=== PATIENT | female | born 1980 | race Caucasian/White ===

== ENCOUNTER → 2020-09-28 | Outpatient (CLI) | payer SELFPAY | LOC: RAD 09:15 | DX: Z30.431 Encounter for routine checking of intrauterine contraceptive device (principal) ==

== ENCOUNTER → 2021-05-24 | Outpatient (CLI) | payer SELFPAY ==
[2021-05-27 06:41] LABS: ASPERGILLUS FUMIGATUS AL COUNT <0.10 kU/L (()); BOX ELDER-MAPLE ALLERGEN COUNT <0.10 kU/L (())
[2021-05-27 06:42] LABS: ALTERNARIA TENUIS CNT <0.10 kU/L (()); BERMUDA GRASS ALLERGEN COUNT 0.23 kU/L (()); CAT DANDER ALLERGEN COUNT 0.18 kU/L (()); CLADOSPORIUM ALLERGEN COUNT <0.10 kU/L (()); COCKROACH ALLERGEN COUNT 0.11 kU/L (()); COTTONWOOD TREE ALLERGEN COUNT <0.10 kU/L (()); DOG DANDER ALLERGEN COUNT 0.47 kU/L (()); DUST MITES (D.F.) ALLERG COUNT 0.22 kU/L (()); DUST MITES (D.P.) ALLERG COUNT 0.21 kU/L (()); ELM TREE ALLERGEN COUNT <0.10 kU/L (()); FIREBUSH ALLERGEN COUNT <0.10 kU/L (()); OAK ALLERGEN COUNT <0.10 kU/L (()); ROUGH MARSH ELDER ALLERG COUNT 0.26 kU/L (()); RUSSIAN THISTLE ALLERGEN COUNT <0.10 kU/L (()); SHORT RAGWEED ALLERGEN COUNT 1.06 kU/L (())
== END ==
LOC: LAB 17:05
PROVIDERS: Family Medicine
DX: R21 Rash and other nonspecific skin eruption (principal)

== ENCOUNTER → 2023-02-07 | Outpatient (CLI) | payer SELFPAY ==
[2023-02-07 12:12] LABS: BASO # 0.04 K/mm3 (0.02-0.10); EOS # 0.41 K/mm3 (0.04-0.40); EOS % 4.4 % (1.0-5.0); HEMATOCRIT 44.6 % (37.0-47.0); HEMOGLOBIN 15.5 g/dL (12.5-16.0); LYMPH# 2.57 K/mm3 (1.50-4.00); MEAN CELL VOLUME 89 fl (78-100); MEAN CORPUSCULAR HEMOGLOBIN 31 pg (27-31); MEAN CORPUSCULAR HGB CONC 35 g/dL (33-37); MONO # 0.42 K/mm3 (0.20-0.80); NEU # 5.88 K/mm3 (1.40-6.50); PLATELET COUNT 313 K/mm3 (130-400); RED BLOOD COUNT 5.02 M/mm3 (4.10-5.30); RED CELL DISTRIBUTION WIDTH 12.7 % (11.5-14.5); WHITE BLOOD COUNT 9.3 K/mm3 (4.8-10.8)
[2023-02-07 12:29] LABS: ALBUMIN 4.5 g/dL (3.5-5.0); POTASSIUM 4.4 mmol/L (3.5-5.1)
[2023-02-07 12:30] LABS: CALCIUM 9.8 mg/dL (8.3-10.5)
[2023-02-07 12:32] LABS: TOTAL PROTEIN 7.7 g/dL (6.4-8.3)
[2023-02-07 12:34] LABS: TOTAL BILIRUBIN 0.5 mg/dL (0.2-1.2)
[2023-02-08 12:48] LABS: ANA SCREEN with REFLEX Negative (Negative)
== END ==
LOC: LAB 11:55
PROVIDERS: Nurse Practitioner
DX: Z00.00 Encounter for general adult medical examination without abnormal findings (principal); Z87.09 Personal history of other diseases of the respiratory system